=== PATIENT | male | born 1950 ===

== ENCOUNTER → 2025-02-09 17:09 | Outpatient (ROUT) | payer OTHER, MEDICARE, SELFPAY | PROVIDERS: PCP Registered Nurse; Visit Provider Registered Nurse | DX: B49 Unspecified mycosis (principal); L24.9 Irritant contact dermatitis, unspecified cause; L23.89 Allergic contact dermatitis due to other agents; L03.90 Cellulitis, unspecified; A49.8 Other bacterial infections of unspecified site; Z79.899 Other long term (current) drug therapy | CPT/HCPCS: 87070; 87075; 87205 ==